=== PATIENT | female | born 1955 | race Caucasian/White ===

== ENCOUNTER → 2019-09-02 12:46 | Outpatient (BNVA) | payer MEDICARE, SELFPAY | PROVIDERS: Family Provider Physician Assistant; Visit Provider Psychiatry & Neurology Psychiatry | DX: F43.12 Post-traumatic stress disorder, chronic (principal); F41.1 Generalized anxiety disorder; F33.2 Major depressive disorder, recurrent severe without psychotic features | CPT/HCPCS: 99213 ==

== ENCOUNTER → 2019-09-25 13:20 | Outpatient (BNVA) | payer MEDICARE, SELFPAY | PROVIDERS: Family Provider Physician Assistant; Visit Provider Psychiatry & Neurology Psychiatry | DX: F43.12 Post-traumatic stress disorder, chronic (principal); F41.1 Generalized anxiety disorder; F33.2 Major depressive disorder, recurrent severe without psychotic features | CPT/HCPCS: 99213 ==

== ENCOUNTER → 2019-09-30 08:37 | Outpatient (BNVA) | payer MEDICARE, SELFPAY | PROVIDERS: Family Provider Physician Assistant; Visit Provider Psychiatry & Neurology Psychiatry | DX: F43.12 Post-traumatic stress disorder, chronic (principal); F41.1 Generalized anxiety disorder; F33.2 Major depressive disorder, recurrent severe without psychotic features | CPT/HCPCS: 99213 ==

== ENCOUNTER 2019-10-02 15:45 | Inpatient (IN) | payer MEDICARE, SELFPAY ==
[2019-10-02 15:48] VITALS: BP 136/82; PULSE 90; RESP 16; TEMP 36.9; O2SAT 95; BMI 20.1
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
--- NOTE | 2019-10-02 16:03 | ECG_ITS ---
Measurements Intervals [place] Rate: 86 P: -66 FL: 128 QRS: 58 QRSD: 80 T: 38 QT: 401 QTc: 482 JUNCTIONAL RHYTHM WITH OCCASIONAL VENTRICULAR PREMATURE COMPLEXES VOLTAGE CRITERIA FOR LVH [MEETS CRITERIA IN ONE OF: R(aVL), S(V1), R(V5), R(V (V5/V6)+S(V1)] No previous ECG available for comparison Electronically Signed On 10-03-2019 14:58:56 CDT by Katrin Pitts M.D. [email or web address]
[2019-10-02 16:38] LABS: Basophils # 0.1 10^3/uL (0.0-0.1); Basophils % 0.8 %; Eosinophils # 0.1 10^3/uL (0.0-0.8); Eosinophils % 1.1 %; Hematocrit 39.7 % (37.0-47.0); Hemoglobin 12.5 g/dL (11.5-15.3); Lymphocytes # 3.6 10^3/uL (0.8-4.8); Lymphocytes % 38.3 %; Mean Corpuscular HGB Conc 31.5 g/dL (30.0-36.0); Mean Corpuscular Hemoglobin 30.9 pg (28.0-34.0); Mean Corpuscular Volume 98.3 fL (81-99); Mean Platelet Volume 11.2 fL (7.4-10.4); Monocytes # 0.7 10^3/uL (0.2-0.9); Monocytes % 7.5 %; Neutrophils # 4.9 10^3/uL (1.8-7.7); Nucleated Red Blood Cells % 0 %; Platelet Count 274 10^3/cmm (130-400); Red Blood Count 4.04 10^6/uL (4.1-5.3); White Blood Count 9.5 10^3/uL (4.0-10.0)
[2019-10-02 17:11] LABS: Alanine Aminotransferase 11 U/L (0-33); Albumin Level 3.8 g/dL (3.5-5.2); Alkaline Phosphatase 60 IU/L (35-105); Anion Gap 14.5 (5-19); Aspartate Amino Transferase 14 U/L (0-32); Blood Urea Nitrogen 13 mg/dL (8-23); Calcium 9.3 mg/dL (8.5-10.5); Carbon Dioxide 29 mmol/L (22-29); Chloride 100 mmol/L (98-107); Globulin 2.6 g/dL (1.3-4.6); Glomerular Filtration Rate 123.4 mL/min (90-130); Glucose 97 mg/dL (65-115); Osmolality Calculated 286 mOsm/kg (285-295); Potassium 3.5 mmol/L (3.5-5.1); Sodium 140 mmol/L (136-145); Thyroid Stimulating Hormone 0.98 uIU/mL (0.27-4.20); Total Bilirubin 0.5 mg/dL (0.15-1.2); Total Protein 6.4 g/dL (6.6-8.7)
[2019-10-02 17:13] LABS: Acetaminophen < 5.0 ug/mL (10-30); Alcohol Level < 10 mg/dL (0-10); Salicylate < 0.3 mg/dL (3-10)
[2019-10-02 21:33] VITALS: BP 114/70; PULSE 103; RESP 18; TEMP 36.9; O2SAT 95
[2019-10-03 06:00] VITALS: BP 124/81; PULSE 95; RESP 18; TEMP 37.1; O2SAT 98
[2019-10-03] MEDS: pantoprazole DR 40 mg Tablet PO (08:34)
[2019-10-03] MEDS: gabapentin 400 mg Capsule PO ×2 (08:34→17:04)
[2019-10-03] MEDS: multivitamin therapeutic Tablet 1 TAB PO (08:34)
[2019-10-03] MEDS: propranolol 20 mg Tablet PO ×2 (08:34→17:04)
[2019-10-03] MEDS: baclofen 10 mg Tablet PO (08:34)
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
[2019-10-03 14:00] VITALS: BP 127/81; PULSE 110; RESP 19
[2019-10-03 14:10] LABS: Amphetamines Screen Urine Negative (Negative); Barbiturates Screen Urine Negative (Negative); Benzodiazepines Screen Urine Negative (Negative); Cocaine Screen Urine Negative (Negative); Opiate Screen Urine Negative (Negative); PCP Screen Urine Negative (Negative); THC Screen Urine Positive (Negative)
[2019-10-03 14:16] LABS: Add Urine Microscopic? YES; Bacteria Urine 1+; Bilirubin Urine 1+ (NEGATIVE); Blood Urine Neg (Negative); Glucose Urine UA Norm (Normal); Ketones Urine 1+ (Negative); Leukocyte Esterase Urine Negative (Negative); Mucus Urine 3+; Nitrate Urine Negative (Negative); Protein Urine Neg (Negative); Urine Appearance SL Hazy (CLEAR); Urine Color Yellow (Yellow); Urobilinogen Urine 1 mg/dL (Negative); WBC Urine 0-4 /hpf (0-5); pH Urine 5 (5-7)
[2019-10-03 14:17] LABS: Add Urine Culture? No
[2019-10-03] MEDS: trazodone 50 mg Tablet PO ×2 (20:22→23:06)
[2019-10-03] MEDS: hyDROXYzine 25 mg Capsule 50 MG PO (20:22)
--- NOTE | 2019-10-03 21:06 | PC.NURSE ---
PRN MEDS PRN TRAZODONE 50 MG AND HYDROXYZINE 50 MG GIVEN PER ORDERS AT 2021 AT PTs REQUEST TO HELP THEM REST. THIS NURSE CHECKED ON Pt AT 2104. Pt RESTING IN BED, EYES CLOSED, RESPIRATIONS EVEN AND UNLABORED.
[2019-10-03 22:00] VITALS: BP 121/78; PULSE 93; RESP 18; TEMP 37.3; O2SAT 94
[2019-10-03] MEDS: OLANZapine 10 mg TABLET PO (23:06)
[2019-10-04 06:00] VITALS: BP 100/73; PULSE 96; RESP 17; TEMP 36.8; O2SAT 94
[2019-10-04] MEDS: multivitamin therapeutic Tablet 1 TAB PO (08:21)
[2019-10-04] MEDS: baclofen 10 mg Tablet PO (08:21)
[2019-10-04] MEDS: gabapentin 400 mg Capsule PO ×2 (08:21→17:31)
[2019-10-04] MEDS: pantoprazole DR 40 mg Tablet PO (08:21)
[2019-10-04] MEDS: propranolol 20 mg Tablet PO ×2 (08:21→17:31)
--- NOTE | 2019-10-04 10:05 | PM.NPN ---
Subjective NPU Subjective: Interval history: Beena presents today still being fairly confused and seeming a bit off. Her urinalysis had a marginal result and so I did a consult with the hospitalist to make sure there is not something in relation to that, that we should manage like an occult UTI or something. The hospitalist noticed the shuffling gait, the slowness of psychomotor activity in general, the almost ghost-like face and tremulousness and reportedly was told by Beena that she has had Parkinson?s since she was 28, which she continues to answer questions and later contradict those and the answers not seem like they are accurate. Given her medications, I find it hard to believe that she has had Parkinson?s and does not have any real first line treatment on board. However, we will continue to reach out to family to try to figure out if there is some piece of this story that we are missing. We discussed the risks, benefits and alternatives of increasing her Zyprexa, and she understood and agreed to proceed as is documented in this note. Mental Status Exam MSE Comments: This is an underweight, thin, older, white female, with adequate dress, grooming, and limited eye contact. No abnormal movements except for psychomotor retardation and the somewhat shuffling gait and tremulousness noted above. Cooperative with exam in no mild distress. Speech was limited and decreased rate and volume. Mood described as okay; affect subdued and anxious. Thought process, linear. Thought content: patient denied any suicidal or homicidal ideation, there were no delusions reported or noted, patient denied any auditory or visual hallucinations. Attention and concentration are limited. Memory unreliable. Alert and oriented times person and place. Insight and judgment are limited. Vitals/I&O/Wt Last Vital Signs Temp 98.2 F 10/04/19 06:00 Pulse 96 10/04/19 06:00 Resp 17 10/04/19 06:00 BP 100/73 10/04/19 06:00 Pulse Ox 94 10/04/19 06:00 Weight last 48 hrs Weight 49.26 kg Weight 56.699 kg Data NPU : 10/02/19 16:24 10/02/19 16:24 A&P Additional A&P Information (1) Post-traumatic stress disorder, chronic: This is a 64 year old, white female, with altered mental status, of unclear etiology, whether this represents a reflection of her post traumatic stress disorder, with recent conflicts reported at home, her depression with psychotic features, raring its head, or generalized anxiety disorder, it is unclear, and in her recent diagnosis there was a question raised about bipolar disorder as well, who presents with confusion. Continue current medication. Except: increase zyprexa to 15 mg po qhs. Will get some collateral information regarding the circumstances that she is under. Follow Hospitalist's recommendations. Encourage individual and milieu therapy. Continue q-15 minute checks for safety. (2) Generalized anxiety disorder: (3) Major depressive disorder, recurrent severe without psychotic features: (4) Altered mental status: Involuntary Hold Information 96 Hour Hold: 96 Hour Involuntary Admission: No Attestations NPU Medical Necessity Statement*: Inpatient hospitalization is medically necessary and the clinically appropriate intervention at this time. We will monitor medications and add or make changes as indicated. Likely length of stay is four to six days. Coding Level of Care Code Acute Wardrobe Stylist for Ana Pearson
[2019-10-04 14:00] VITALS: BP 109/72; PULSE 98; RESP 18; TEMP 36.9
--- NOTE | 2019-10-04 14:03 | P.CONIM_ITS ---
Providers/Reason For Consult Consulting Physican/Specialty*: Donna Almaraz MD, Hospitalist Reason for Consult*: Altered mental status, tremors Requesting Physcian: Dr. Torres Attending Physician: Jeremiah Torres MD History of Present Illness History of Present Illness Beena Welch is a 64 year old female with PMHx of MDD, PTSD, Anxiety as well as reported Parkinson disease, is encountered in NPU following consultation for altered mental status and tremors. Patient was admitted from the ER on 10/01 following presentation for suicidal ideation and worsening depression and was admitted to the NPU where she was noted to have upper extremity tremors and clouded sensorium. She had had work-up done including CBC, chemistry and urinalysis the latter of which was positive for bacteria the sample was contaminated. Patient does display baseline her resting tremor of the bilateral upper extremities worse on the left, is bradykinetic, with noted slow shuffling gait. She is alert and oriented and answers my questions appropriately. She reports productive cough and abdominal cramping but otherwise denies chest pain, shortness of breath, nausea/vomiting, changes in her urination or bowel habits. She states that she was diagnosed with Parkinson disease at age 28 and has been taking ropinirole for this. She denies following up with the specialist and states that she sees a nurse practitioner who takes care of this issue for her. Vital signs have been stable. She is currently denying suicidal ideation. Review of Systems Const: Reports: fatigue and change in sleep pattern; Denies: fever or chills Eyes: Reports: blurry vision (chronic, intermittent) ENMT: Reports: dry mouth Card: Denies: chest pain, swelling of feet/ankles or lightheadedness Resp: Reports: non-productive cough; Denies: shortness of breath GI: Reports: abdominal pain (cramping); Denies: nausea, vomiting, vomiting blood or blood in stool : Denies: difficulty urinating or painful urination Musc: Denies: back pain Skin/Breast: Denies: rash Neuro: Reports: other (tremors in upper extremities); Denies: numbness in extremities or weakness in extremities Psych: Reports: sleeping less; Denies: anxiety or suicidal ideation Meds/Allergies Home Medications and Allergies Home Medications Medication Instructions Recorded Confirmed Last Taken Type gabapentin 300 mg capsule 400 mg PO BID 06/15/19 10/02/19 Unknown History propranolol 20 mg tablet 20 mg PO BID 06/15/19 10/02/19 10/02/19 History ropinirole 3 mg tablet 3 mg PO QID PRN tab 06/15/19 10/02/19 Unknown History duloxetine 60 mg capsule,delayed 60 mg PO DAILY #30 cap 09/02/19 10/02/19 Unknown Rx release baclofen 10 mg PO DAILY 10/02/19 10/02/19 Unknown History multivitamin [Multiple Vitamins] 1 tab PO DAILY 10/02/19 10/02/19 Unknown History omeprazole magnesium [Prilosec OTC] 40 mg PO DAILY 10/02/19 10/02/19 Unknown History ondansetron HCl [Zofran] 4 mg PO Q8H PRN 10/02/19 10/02/19 Unknown History tramadol [Ultram] 50 mg PO BID PRN 10/02/19 10/02/19 10/02/19 History trazodone 200 mg PO BEDTIME 10/02/19 10/02/19 10/01/19 History Allergies Allergy/AdvReac Type Severity Reaction Status Date / Time acetaminophen [From Tylenol] AdvReac Intermediate Abd. pain Verified 09/25/19 10:47 Penicillins AdvReac Intermediate Causes UTI. Verified 09/25/19 10:47 Current Medications Current Medications Generic Name Dose Route Start Last Admin Trade Name Freq PRN Reason Stop Dose Admin Baclofen 10 mg 10/03/19 09:00 10/04/19 08:21 Lioresal PO 10 mg DAILY XENIA Administration Gabapentin 400 mg 10/03/19 09:00 10/04/19 08:21 Neurontin PO 400 mg BID XENIA Administration Hydroxyzine Pamoate 50 mg 10/02/19 19:28 10/03/19 20:22 Vistaril PO 50 mg Q6H PRN Administration ANXIETY Multivitamins Therapeutic 1 tab 10/03/19 09:00 10/04/19 08:21 Multivitamin Tab PO 1 tab DAILY XENIA Administration Olanzapine 10 mg 10/03/19 22:00 10/03/19 23:06 Zyprexa PO 10 mg BEDTIME XENIA Administration Pantoprazole Sodium 40 mg 10/03/19 09:00 10/04/19 08:21 Protonix PO 40 mg DAILY XENIA Administration Propranolol HCl 20 mg 10/03/19 09:00 10/04/19 08:21 Inderal PO 20 mg BID XENIA Administration PFSH Acute PFSH: Medical History (Updated 10/04/19 @ 14:15 by Donna Almaraz MD) Generalized anxiety disorder Major depressive disorder, recurrent severe without psychotic features Parkinson disease reported dx by patient Post-traumatic stress disorder, chronic Surgical History (Updated 10/04/19 @ 14:08 by Donna Almaraz MD) No history of previous surgery Family History (Updated 10/04/19 @ 14:09 by Donan Almaraz MD) Father Psychiatric illness depression Social History (Updated 10/04/19 @ 14:09 by Donna Almaraz MD) Smoking and tobacco status: current every day smoker Substance/Drug Use: current Substance/Drug use type: Marijuana Vitals/I&O/Wt Last Vital Signs Temp 98.2 F 10/04/19 06:00 Pulse 96 10/04/19 06:00 Resp 17 10/04/19 06:00 BP 100/73 10/04/19 06:00 Pulse Ox 94 10/04/19 06:00 Weight last 48 hrs Weight 49.26 kg Weight 56.699 kg Physical Exam Const: COMMON NORMALS: no apparent distress and alert GENERAL APPEARANCE: cooperative, comfortable, frail appearing and appears older than stated age NUTRITIONAL APPEARANCE: cachectic ORIENTATION/CONSCIOUSNESS: Yes awake, Yes oriented to person and Yes oriented to place HENMT: COMMON NORMALS: normocephalic, head/scalp atraumatic, hearing grossly normal bilaterally and moist oral mucous membranes HEAD & SCALP: normocephalic and atraumatic TEETH & GINGIVA: Yes poor dentition Eye: COMMON NORMALS: PERRL, EOMs intact bilaterally and conjunctivae normal CONJUNCTIVA: Yes conjunctivae normal PUPIL: Yes PERRL Neck/C-Spine: COMMON NORMALS: full ROM GENERAL: Yes normal visual inspection and Yes trachea midline Chest: COMMONS NORMALS: inspection of chest normal Resp: COMMON NORMALS: normal respiratory effort, no retractions, no use of accessory muscles and clear to auscultation bilaterally EFFORT & INSPECTION: Yes able to speak in complete sentences, Yes symmetric chest movement and No tachypneic AUSCULTATION: clear to auscultation bilaterally Cardio: COMMON NORMALS: regular rate, regular rhythm, S1 normal heart sound, S2 normal heart sound and no murmurs RATE: regular rate RHYTHM: regular rhythm HEART SOUNDS: S1 normal and S2 normal GI: COMMON NORMALS: normal to inspection, nondistended, normoactive bowel sounds, soft to palpation and non-tender PALPATION: Yes soft Back/Pelvis: COMMON NORMALS: thoracic and lumbar spine normal to inspection Extremity: COMMON NORMALS: normal to inspection, full ROM, no clubbing, cyanosis or edema and no pedal edema Neuro: COMMON NORMALS: moves all extremities, no focal motor deficits and no sensory deficits noted SENSORIUM/ORIENTATION: Yes alert, Yes oriented to person and Yes oriented to place SPEECH: other (slow speech) GAIT: Yes shuffling MOTOR EXAM: tremor resting tremor bialteral upper extremity (L > R) Psych: COMMON NORMALS: mental status grossly normal, thought process normal and cooperative SPEECH: Yes slow MOOD & AFFECT: Yes flat affect THOUGHT PROCESS: normal thought process THOUGHT CONTENT: Yes normal thought content ATTENTION/CONCENTRATION: Yes attention grossly intact MEMORY/COGNITION: Yes memory grossly intact Skin: COMMON NORMALS: no rashes or lesions noted, no jaundice, no petechiae and no mottling GENERAL SKIN EXAM: no rashes or lesions noted A&P Assessment and plan (1) Parkinson disease: -patient reports prior dx of Parkinson disease since age 28, denies f/u with specialist and reports taking Ropinirole for this -Clinically she is bradykinetic, with noted baseline resting tremor of both upper extremities though worse on the left, slow shuffling gait and slow speech which would be consistent with parkinsonism -continue ropinirole Status: Chronic (2) Altered mental status: -patient is alert and oriented x 2 during my assessment, states month is May but is otherwise able to correctly state , president, location, name -answers questions appropriately -infection ruled out; UA not indicative of infection, no leukocytosis, afebrile, and she is asymptomatic so would not treat -VSS -re-orient as needed Status: Acute Qualifiers: Altered mental status type: unspecified Qualified Code(s): R41.82 - Altered mental status, unspecified (3) Post-traumatic stress disorder, chronic: -per psychiatry Status: Chronic (4) Major depressive disorder, recurrent severe without psychotic features: Status: Chronic (5) Generalized anxiety disorder: Status: Chronic Additional A&P Information -regular diet as tolerated -Chronic smoker -rest of management per Psychiatry -Thank you for this consult. Will sign off, please call with questions. Consult Attestations Medical Necessity Statement: Patient requires hospitalization for continued inpatient psychiatric care. Time Spent in Patient Care: Greater than 35 minutes (>than 50% of time spent in counselling and/or direct pt care on unit) . Coding Level of Care Code Acute Global Upstream Marketing Manager for g Fwd Diagnoses Parkinson disease G20 Altered mental status R41.82 Altered mental status type: unspecified Post-traumatic stress disorder, chronic F43.12 Major depressive disorder, recurrent severe without psychotic features F33.2 Generalized anxiety disorder F41.1
[2019-10-04] MEDS: hyDROXYzine 25 mg Capsule 50 MG PO (20:23)
[2019-10-04] MEDS: OLANZapine 10 mg TABLET PO (20:23)
[2019-10-04] MEDS: OLANZapine 10 mg TABLET 15 MG PO (21:38)
[2019-10-04 22:00] VITALS: BP 99/65; PULSE 89; RESP 18; TEMP 37.4; O2SAT 95
[2019-10-05 06:00] VITALS: BP 96/66; PULSE 82; RESP 18; TEMP 36.4; O2SAT 98
[2019-10-05] MEDS: multivitamin therapeutic Tablet 1 TAB PO (08:26)
[2019-10-05] MEDS: baclofen 10 mg Tablet PO (08:26)
[2019-10-05] MEDS: gabapentin 400 mg Capsule PO ×2 (08:26→17:47)
[2019-10-05] MEDS: propranolol 20 mg Tablet PO ×2 (08:26→17:47)
[2019-10-05] MEDS: pantoprazole DR 40 mg Tablet PO (08:26)
--- NOTE | 2019-10-05 13:27 | P.PN_ITS ---
Subjective NPU Subjective: Interval history: The patient presents today continuing to be fairly somnolent during the time she is not engaged, but otherwise reporting that things are going better and that she is feeling better overall. She still has limited spontaneous speech and interactions, but she will answer questions and endorses this morning that she is not having any problems with the me dication changes that were made on side effects, no worsening of symptoms. We may want to introduce some Amantadine or Cogentin which we discussed the risks, benefits and alternatives and she understood and agreed to proceed as is documented in this note. Mental Status Exam MSE Comments: This is a thin, underweight, elderly, female, with adequate dress, grooming, and limited eye contact. No abnormal movements except for psychomotor retardation. I did not see her walking today. Cooperative with exam in no acute distress. Speech was limited and decreased rate and volume. Mood described as okay; affect subdued. Thought process, appeared organized. Thought content: patient denied any suicidal or homicidal ideation, there were no delusions reported or noted today, patient denied any auditory or visual hallucinations. Attention and concentration were intact. Memory still appears unreliable, but none were formally tested. Alert and oriented times three. Insight and judgment are limited. Vitals/I&O/Wt Last Vital Signs Temp 97.6 F 10/05/19 06:00 Pulse 82 10/05/19 06:00 Resp 18 10/05/19 06:00 BP 96/66 10/05/19 06:00 Pulse Ox 98 10/05/19 06:00 Data NPU : 10/02/19 16:24 10/02/19 16:24 A&P Additional A&P Information (1) Post-traumatic stress disorder, chronic: This is a 64 year old, white female, with altered mental status, of unclear etiology, whether this represents a reflection of her post traumatic stress disorder, with recent conflicts reported at home, her depression with psychotic features, raring its head, or generalized anxiety disorder, it is unclear, and in her recent diagnosis there was a question raised about bipolar disorder as well, who presents with confusion. Continue current medication. Will consider agent for EPS. Will get some collateral information regarding the circumstances that she is under. Encourage individual and milieu therapy. Continue q-15 minute checks for safety. (2) Generalized anxiety disorder: (3) Major depressive disorder, recurrent severe without psychotic features: (4) Altered mental status: Involuntary Hold Information 96 Hour Hold: 96 Hour Involuntary Admission: No Attestations NPU Medical Necessity Statement*: Inpatient hospitalization is medically necessary and the clinically appropriate intervention at this time. We will monitor medications and add or make changes as indicated. Likely length of stay is 3-5 days. Coding Level of Care Code Acute Certified Adaptive Physical Educator for Ana Pearson
[2019-10-05 13:58] VITALS: BP 104/73; PULSE 106; RESP 18; TEMP 37.8; O2SAT 96
[2019-10-05] MEDS: OLANZapine 10 mg TABLET 15 MG PO (21:09)
--- NOTE | 2019-10-05 21:16 | PC.NURSE ---
Pt given scheduled Zyprexa at 2036.
[2019-10-05 21:41] VITALS: BP 103/67; PULSE 95; RESP 15; TEMP 37.4; O2SAT 95
[2019-10-05] MEDS: hyDROXYzine 25 mg Capsule 50 MG PO (22:51)
[2019-10-06 06:00] VITALS: BP 112/79; PULSE 106; RESP 18; TEMP 36.9; O2SAT 97
--- NOTE | 2019-10-06 08:58 | PC.SOCIAL ---
important message for medicare was provided yesterday October 05.
[2019-10-06] MEDS: multivitamin therapeutic Tablet 1 TAB PO (09:19)
[2019-10-06] MEDS: propranolol 20 mg Tablet PO ×2 (09:19→17:22)
[2019-10-06] MEDS: pantoprazole DR 40 mg Tablet PO (09:19)
[2019-10-06] MEDS: gabapentin 400 mg Capsule PO ×2 (09:19→17:22)
[2019-10-06] MEDS: baclofen 10 mg Tablet PO (09:19)
[2019-10-06 13:26] VITALS: BP 105/73; PULSE 98; RESP 18; TEMP 37.4; O2SAT 98
--- NOTE | 2019-10-06 15:10 | PC.SOCIAL ---
collateral information from brother Yariel Beckman [phone] they have lived together since October of 2018. After 2 months living with him she has been playing mind games. It has gotten really bad in the last 3-4 weeks when she stays up all night. She has admitted to him that she lies. She has moved things that are important to him and then lie about it. She leaves lights on. She throws things in trash. Bottomline, she is not welcomed back. He just can't live with her. He believes she knows what she is doing. He said that he does not believe she is delusional. He does think she might have some memory problems. He basically thinks she does have depression. It really has gotten bad since the COVID 19 issues came up and it has prevented her from going to see her son. He lives in [place], [place] at [facility]. He has had diagnosis of schizophrenia. She also has a daughter who has rage problems. Patient does receive $1433 and she has medicare a and b. Patient has history of being evicted form home. Brother does not want to do that but he is very firm that she cannot return to his home. He does love her and wants to keep relationship with her. He just can't live with her. He will help her move.
--- NOTE | 2019-10-06 15:50 | PM.NPN ---
Subjective NPU Subjective: Interval history: Beena presents today reporting that she is doing better, and she continues to endorse the history of having Parkinson?s since she was 28, and reports that the only significant treatment she has had has been Requip and that has been effective. She denies her shaking or tremulousness being a problem to her or being something that bothers her or makes her think she wants a stronger more effective medication. She continues to endorse the conflict with her brother is related to her accidentally throwing things away that she thought were hers, but that actually belonged to him. Reports from social work suggest that he believes that she almost throws her stuff away as a passive aggressive act. He reports that he plans to be very supportive of her, but just that her living at the home fulltime is just not something that is healthy for either of them. She endorses that she has the resources for her own place and really wants to stay in the area and get her own place. The social work team is working with her to make those arrangements so we can plan for discharge soon. Mental Status Exam MSE Comments: This is a slender, underweight, older, white female, with adequate dress, limited grooming, and eye contact. No abnormal movements except for some tremulousness, was once again not noted to be walking. Cooperative with exam in no acute distress. Speech was decreased rate and volume. Mood described as better; affect congruent. Thought process, organized. Thought content: patient denied any suicidal or homicidal ideation, there were no delusions reported or noted, patient denied any auditory or visual hallucinations. Attention, concentration, and memory appeared intact but were not formally tested. Alert and oriented times three. Insight and judgment are limited but improving. Vitals/I&O/Wt Last Vital Signs Temp 99.7 F H 10/06/19 21:14 Pulse 107 H 10/06/19 21:14 Resp 23 H 10/06/19 21:14 BP 106/71 10/06/19 21:14 Pulse Ox 96 10/06/19 21:14 Data NPU : 10/02/19 16:24 10/02/19 16:24 A&P Additional A&P Information (1) Post-traumatic stress disorder, chronic: This is a 64 year old, white female, with altered mental status, of unclear etiology, whether this represents a reflection of her post traumatic stress disorder, with recent conflicts reported at home, her depression with psychotic features, raring its head, or generalized anxiety disorder, it is unclear, and in her recent diagnosis there was a question raised about bipolar disorder as well, who presents with improvement in her confusion since admission. Continue current medication. Encourage individual and milieu therapy. Continue q-15 minute checks for safety. Will explore discharge options over next 48 hours (2) Generalized anxiety disorder: (3) Major depressive disorder, recurrent severe without psychotic features: (4) Altered mental status: Involuntary Hold Information 96 Hour Hold: 96 Hour Involuntary Admission: No Attestations NPU Medical Necessity Statement*: Inpatient hospitalization is medically necessary and the clinically appropriate intervention at this time. We will monitor medications and add or make changes as indicated. Likely length of stay is 2-4 days. Coding Level of Care Code Acute Development Educator for Ana Pearson
[2019-10-06] MEDS: ropinirole 1 mg Tablet 3 MG PO (20:28)
[2019-10-06] MEDS: OLANZapine 10 mg TABLET 15 MG PO (20:28)
[2019-10-06 21:14] VITALS: BP 106/71; PULSE 107; RESP 23; TEMP 37.6; O2SAT 96
--- NOTE | 2019-10-06 21:45 | PC.NURSE ---
Pt given scheduled Zyprexa and Prn requip for complaint of restless leg syndrome.
[2019-10-07 05:55] VITALS: BP 101/71; PULSE 106; RESP 20; TEMP 36.6; O2SAT 95
[2019-10-07] MEDS: pantoprazole DR 40 mg Tablet PO (09:07)
[2019-10-07] MEDS: propranolol 20 mg Tablet PO ×2 (09:07→17:28)
[2019-10-07] MEDS: baclofen 10 mg Tablet PO (09:07)
[2019-10-07] MEDS: gabapentin 400 mg Capsule PO ×2 (09:07→17:28)
[2019-10-07] MEDS: multivitamin therapeutic Tablet 1 TAB PO (09:07)
[2019-10-07 13:32] VITALS: BP 93/62; PULSE 78; RESP 18; TEMP 36.9; O2SAT 97
--- NOTE | 2019-10-07 14:42 | PM.NPN ---
Subjective NPU Subjective: Interval history: Beena presents today reporting that she feels a little better. She continues to endorse that she is fine with the tremulousness that is noted with some of her intentional behavior. She was happy today to note that the social director talked to her brother and her brother had endorsed a plan to assist her in her transition from his place to wherever she is going to live. She reports she feels the medication is working well and we talked about the likelihood of discharge in the next 48 hours. We discussed her utilizing her resources to get a place of her own which is what she has wanted to do for some time and wants to stay in the area. Mental Status Exam MSE Comments: This is an underweight, slender, older, white female, with adequate dress, grooming, and eye contact. No abnormal movements except for improving psychomotor retardation. Some tremulousness noted. Cooperative with exam in no acute distress. Speech was decreased rate and volume but improving Mood described as better; affect slightly brighter. Thought process, organized. Thought content: patient denied any suicidal or homicidal ideation, there were no delusions reported or noted, patient denied any auditory or visual hallucinations. Attention, concentration, and memory appeared intact but were not formally tested. Alert and oriented times three. Insight and judgment are improving. Vitals/I&O/Wt Last Vital Signs Temp 98.0 F 10/07/19 21:41 Pulse 108 H 10/07/19 21:41 Resp 18 10/07/19 21:41 BP 112/81 10/07/19 21:41 Pulse Ox 98 10/07/19 21:41 Data NPU : 10/02/19 16:24 10/02/19 16:24 A&P Additional A&P Information (1) Post-traumatic stress disorder, chronic: This is a 64 year old, white female, with altered mental status, of unclear etiology, whether this represents a reflection of her post traumatic stress disorder, with recent conflicts reported at home, her depression with psychotic features, raring its head, or generalized anxiety disorder, it is unclear, and in her recent diagnosis there was a question raised about bipolar disorder as well, who presents with improvement in her confusion since admission. Continue current medication. Encourage individual and milieu therapy. Continue q-15 minute checks for safety. Will explore discharge options over next 48 hours (2) Generalized anxiety disorder: (3) Major depressive disorder, recurrent severe without psychotic features: (4) Altered mental status: Involuntary Hold Information 96 Hour Hold: 96 Hour Involuntary Admission: No Attestations NPU Medical Necessity Statement*: Inpatient hospitalization is medically necessary and the clinically appropriate intervention at this time. We will monitor medications and add or make changes as indicated. Likely length of stay is 1-3 days. Coding Level of Care Code Acute Personal Property Assessor for Ana Pearson
[2019-10-07] MEDS: ropinirole 1 mg Tablet 3 MG PO ×2 (17:31→21:44)
--- NOTE | 2019-10-07 17:31 | PC.NURSE ---
PRN REQUIP REQUIP 3MG PO GIVIN TO PATIENT FOR COMPLAINTS OF TREMORS.
[2019-10-07 21:41] VITALS: BP 112/81; PULSE 108; RESP 18; TEMP 36.7; O2SAT 98
[2019-10-07] MEDS: OLANZapine 10 mg TABLET 15 MG PO (21:44)
[2019-10-08 06:00] VITALS: BP 103/70; PULSE 104; RESP 16; TEMP 36.7; O2SAT 98
[2019-10-08] MEDS: gabapentin 400 mg Capsule PO ×2 (08:05→17:28)
[2019-10-08] MEDS: baclofen 10 mg Tablet PO (08:05)
[2019-10-08] MEDS: propranolol 20 mg Tablet PO ×2 (08:05→17:28)
[2019-10-08] MEDS: pantoprazole DR 40 mg Tablet PO (08:05)
[2019-10-08] MEDS: multivitamin therapeutic Tablet 1 TAB PO (08:05)
--- NOTE | 2019-10-08 10:44 | P.PN_ITS ---
Subjective NPU Subjective: Interval history: Beena presented today continuing her slow improvement that she has demonstrated daily. She and her brother agreed that they would look at apartments tomorrow and get her into 1. She gets her check tomorrow which would allow her to have the resources to get an apartment immediately. She is excited about this idea and agreed to likely plan of discha rge tomorrow and was excited that her brother would be helping her in the process. Mental Status Exam MSE Comments: This is an underweight, slender, older, white female, with adequate dress, grooming, and eye contact. No abnormal movements except for improving psychomotor retardation. Some tremulousness noted. Cooperative with exam in no acute distress. Speech was decreased rate and volume but improving Mood described as better; affect slightly brighter. Thought process, organized. Thought content: patient denied any suicidal or homicidal ideation, there were no delusions reported or noted, patient denied any auditory or visual hallucinations. Attention, concentration, and memory appeared intact but were not formally tested. Alert and oriented times three. Insight and judgment are improving. Vitals/I&O/Wt Last Vital Signs Temp 98.2 F 10/08/19 06:00 Pulse 102 H 10/08/19 06:00 Resp 20 H 10/08/19 06:00 BP 101/67 10/08/19 06:00 Pulse Ox 95 10/08/19 06:00 Data NPU : 10/02/19 16:24 10/02/19 16:24 A&P Additional A&P Information (1) Post-traumatic stress disorder, chronic: This is a 64 year old, white female, with altered mental status, of unclear etiology, whether this represents a reflection of her post traumatic stress disorder, with recent conflicts reported at home, her depression with psychotic features, raring its head, or generalized anxiety disorder, it is unclear, and in her recent diagnosis there was a question raised about bipolar disorder as well, who presents with improvement in her confusion since admission. Continue current medication. Encourage individual and milieu therapy. Continue q-15 minute checks for safety. Tentative plan for discharge tomorrow. (2) Generalized anxiety disorder: (3) Major depressive disorder, recurrent severe without psychotic features: (4) Altered mental status: Involuntary Hold Information 96 Hour Hold: 96 Hour Involuntary Admission: No Attestations NPU Medical Necessity Statement*: Inpatient hospitalization is medically necessary and the clinically appropriate intervention at this time. We will monitor medications and add or make changes as indicated. Likely length of stay is 1-2 days. Coding Level of Care Code Acute Heavy Equipment Rental Manager for Ana Pearson
[2019-10-08 13:15] VITALS: BP 101/67; PULSE 102; RESP 20; TEMP 36.8; O2SAT 95
[2019-10-08] MEDS: ropinirole 1 mg Tablet 3 MG PO (20:15)
[2019-10-08] MEDS: OLANZapine 10 mg TABLET 15 MG PO (20:15)
[2019-10-08 21:22] VITALS: BP 118/82; PULSE 96; RESP 18; TEMP 36.9; O2SAT 97
[2019-10-09 06:00] VITALS: BP 112/77; PULSE 96; RESP 17; TEMP 36.6; O2SAT 96
[2019-10-09] MEDS: pantoprazole DR 40 mg Tablet PO (08:07)
[2019-10-09] MEDS: gabapentin 400 mg Capsule PO (08:07)
[2019-10-09] MEDS: multivitamin therapeutic Tablet 1 TAB PO (08:07)
[2019-10-09] MEDS: propranolol 20 mg Tablet PO (08:07)
[2019-10-09] MEDS: baclofen 10 mg Tablet PO (08:07)
--- NOTE | 2019-10-09 09:09 | PC.SOCIAL ---
updated important message for medicare has been provided
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
[2019-10-09 13:01] VITALS: BP 112/77; PULSE 96; RESP 17; TEMP 36.6; O2SAT 96
== END 2019-10-09 16:01 | disposition home or self-care (01) | DRG 880 ==
LOC: ER 17:52 → NP 17:52
PROVIDERS: Admitting Provider Psychiatry & Neurology Psychiatry; Emergency Provider Family Medicine; Family Provider Physician Assistant; Visit Provider Psychiatry & Neurology Psychiatry
DX: F41.8 Other specified anxiety disorders (principal); R45.851 Suicidal ideations; F43.12 Post-traumatic stress disorder, chronic; G20 Parkinson's disease; F17.210 Nicotine dependence, cigarettes, uncomplicated
CPT/HCPCS: 12345; 36415; 80053; 80306; 80307; 81001; 84443; 85025; 93005; 99213; 99284

== ENCOUNTER 2019-10-26 13:21 | Emergency (ER) | payer SELFPAY ==
[2019-10-26 13:22] VITALS: BP 120/77; PULSE 94; RESP 15; TEMP 36.6; O2SAT 95; BMI 17.4
[2019-10-26 13:28] VITALS: BP 120/77; PULSE 99; RESP 16; O2SAT 94
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
[2019-10-26 14:33] VITALS: PULSE 78; RESP 16; O2SAT 95
== END 2019-10-26 14:34 | disposition home or self-care (01) ==
PROVIDERS: Emergency Provider Nurse Practitioner Family
DX: Z04.1 Encounter for examination and observation following transport accident (principal); V59.9XXA Occupant (driver) (passenger) of pick-up truck or van injured in unspecified traffic accident, initial encounter; G20 Parkinson's disease; F17.210 Nicotine dependence, cigarettes, uncomplicated
CPT/HCPCS: 12345; 99281

== ENCOUNTER → 2019-12-16 07:38 | Outpatient (BNVA) | payer MEDICARE, SELFPAY | PROVIDERS: Visit Provider Psychiatry & Neurology Psychiatry | DX: F33.2 Major depressive disorder, recurrent severe without psychotic features (principal); F41.1 Generalized anxiety disorder; F43.12 Post-traumatic stress disorder, chronic | CPT/HCPCS: 99213 ==

== ENCOUNTER → 2020-03-09 07:56 | Outpatient (BNVA) | payer MEDICARE, SELFPAY | PROVIDERS: Visit Provider Psychiatry & Neurology Psychiatry | DX: F33.2 Major depressive disorder, recurrent severe without psychotic features (principal); F41.1 Generalized anxiety disorder; F43.12 Post-traumatic stress disorder, chronic | CPT/HCPCS: 99213 ==

== ENCOUNTER → 2020-05-25 08:04 | Outpatient (BNVA) | payer MEDICARE, SELFPAY | PROVIDERS: Visit Provider Psychiatry & Neurology Psychiatry | DX: F33.2 Major depressive disorder, recurrent severe without psychotic features (principal); F41.1 Generalized anxiety disorder; F43.12 Post-traumatic stress disorder, chronic | CPT/HCPCS: 99213 ==